=== PATIENT | male | born 1950 | race African-American/Black ===

== ENCOUNTER 2024-05-11 10:37 | Emergency (ER) | payer MEDICARE, SELFPAY ==
[2024-05-11 10:44] VITALS: BP 135/69
--- NOTE | 2024-05-11 11:58 | ED.GENMED ---
History of Present Illness
General
Chief Complaint: Musculo-Skeletal Complaint
Source: patient
Exam Limitations: none
Time Seen by Provider: 05/11/24 11:43
History of Present Illness
History of Present Illness:
73yoM with a history of Parkinson's disease, prostate cancer, and trigeminal neuralgia presenting with his for evaluation of right leg pain. Patient reports pain in his right anterior upper thigh for the past 2 days. He denies any trauma to
the area. Pain is worse with movement as well as weightbearing. He has not taken anything [id number] for symptoms. Of note, patient recently traveled to [place]. He denies any back pain, paresthesias, fevers, chest pain, shortness of
breath.
Past History
Past History
ED Past Medical History: Cancer (Prostate)
ED Past Surgical History: Urological (Prostatectomy)
Social History
Tobacco: Non-smoker
Phy Exam
General Physical Exam
General Presentation: well appearing and no apparent distress
General age: appears stated age
General Skin: warm and dry
General Habitus: normal
General Mental: alert
ENT Exam
ENT Exam: normocephalic
Pulmonary Exam
Pulmonary Exam: no respiratory distress
Neurological Exam
Neurological Exam: alert
Masoud Coma Scale
Eye Opening: Spontaneous
Verbal Response: Oriented
Motor Response: Obeys Commands
GCS Total Score: 15
Musculoskeletal Exam
Musculoskeletal Exam: other (R thigh: Mild tenderness to the anterior upper thigh. ROM of hip mildly decreased and reproduces pain. Compartments soft. No edema to extremity. 2+ DP pulse and sensation intact.)
Skin Exam
Skin Exam: normal color and warm/dry
Psychiatric Exam
Psychiatric Exam: normal mood/affect
Course
Orders/Labs/Results
Orders:
Orders
05/11/24 11:57
CR Femur - Right Min 2 Vw Urgent
Comment:
Reason For Exam: atraumatic pain
Hip, Right 2-3 Views [CR Hip - RT w/wo Pel 2-3 Vw*] Urgent
Comment:
Reason For Exam: atraumatic pain
Include a pelvis x-ray?: Yes
Venous Doppler Lwr Ext Rt [US Periph Venous LOWER Ext RT] Urgent
Comment:
Reason For Exam: R leg pain, recent travel
05/11/24 11:58
Acetaminophen [Tylenol] 650 mg PO NOW STA
Ibuprofen [Motrin] 600 mg PO NOW STA
Vital Signs
Initial and Last Documented VS:
Initial Vital Signs
Temp Pulse Resp BP Pulse Ox
98.2 F 85 20 135/69 98
05/11/24 10:44 05/11/24 10:44 05/11/24 10:44 05/11/24 10:44 05/11/24 10:44
Last Documented Vital Signs
Temp Pulse Resp BP Pulse Ox
98.2 F 85 20 135/69 98
05/11/24 10:44 05/11/24 10:44 05/11/24 10:44 05/11/24 10:44 05/11/24 10:44
MDM/Problems Addressed
Differential Diagnosis Includes:
73yoM here with R thigh pain x 2 days that is worse with movement/weight bearing. Denies trauma. Recent trip to [place]. VSS. He is well appearing in no distress. There is mild tenderness in the R anterior upper thigh on exam with mildly decreased
ROM of the R hip. RLE is neurovascularly intact. Differential diagnosis includes but is not limited to: muscular strain, referred pain, less likely DVT, doubt fracture
Initial ED plan: Check R hip/femur x-rays and venous duplex. Tylenol and ibuprofen for pain.
*Critical Care Note
Total Time (30-74mins, 75-104mins- exclusive of procedures): Not Applicable
Update Note
Update Note:
Venous duplex is negative for DVT. X-rays show calcifications lateral to the acetabulum, likely tendinous. Unclear where this is related to his pain or not. Pain improved on reassessment after medications. No indication for admission. Supportive
care discussed. Advised f/u with PCP and orthopedics. ED return precautions discussed and patient discharged in stable condition.
ED Attending Note
-
Portions of this chart may have been created with voice recognition software.� Occasional wrong word or��sound alike� substitutions may have occurred due to the inherent limitations of voice recognition software.
Discharge Plan
Departure
Patient Disposition: Home (Routine Discharge)
Date of Disposition: 05/11/24
Time of Disposition: 14:03
Patient with high blood pressure during this ER visit?: No
Discharge Problem:
Acute pain of right thigh
Instructions: Muscle, joint, and bone pain - Discharge instructions
Prescriptions:
No Action
apixaban [Eliquis DVT-PE Treat 30D Start] 5 MG tablets,dose pack
5 - 10 mg PO DIRECTED Qty: 1 0RF
Referrals:
Larry Chakraborty, [Family Provider] -
Dorian Kovacs MD [Active] -
Activity Restrictions/Additional Instructions:
Apply ice to affected area. Take Tylenol and ibuprofen as needed for pain.
Please follow-up with orthopedics if symptoms persist. Return to the ER with any new or worsening symptoms.
Interventions
Interventions:
*Risk Screen - Suicide Last Done: 05/11/24 10:44
*General Assessment Last Done: 05/11/24 12:00
*Neglect/Abuse Screening Last Done: 05/11/24 12:00
*ED- Fall Risk Assessment Last Done: 05/11/24 14:28
*ED COVID-19 Vaccine History Last Done: 05/11/24 12:00
*Nursing Disposition Last Done: 05/11/24 14:27
ED-Musculoskeletal Assessment Last Done: 05/11/24 11:56
Discharge Date and Time
Discharge Date/Time: 05/11/24 14:29
Print Language: BAHAMIAN
[2024-05-11] MEDS: MOTRIN 600 MG PO (12:09)
[2024-05-11] MEDS: TYLENOL 650 MG PO (12:10)
== END 2024-05-11 14:29 | disposition home or self-care (01) ==
LOC: EMR 10:37
PROVIDERS: EMERGENCY PHYSICIAN Emergency Medicine; FAMILY PHYSICIAN Family Medicine
DX: M79.651 Pain in right thigh (principal); G20.A1 Parkinson's disease without dyskinesia, without mention of fluctuations; Z85.46 Personal history of malignant neoplasm of prostate; Z90.79 Acquired absence of other genital organ(s)
CPT/HCPCS: 99284; 73502; 73552; 93971